=== PATIENT | female | born 1950 | race Caucasian/White ===

== ENCOUNTER → 2016-03-09 | Outpatient (REF) | payer MEDICARE ==
[~2016-03-09] MED LIST: /PANT40TA; ACET65TA; BACTRIMDS PO; CAHNTIXC PO; CHAN0.5P PO; DIFLUC100 PO; HCTZ25 PO; HYDR25TA6; IMITREX100 PO; MELOPOW; MOBIC7.5 PO; PROTONIX40 PO; RANITIDINE PO; TRAM50TA2; TYLENOL #3; WELLBUT300 PO; ZANT150T
[2016-03-09 15:59] LABS: ALBUMIN 3.7 GM/DL (3.2-5.2); ALBUMIN/GLOBULIN RATIO 1.19 (1.00-1.93); BILIRUBIN,TOTAL 0.4 MG/DL (0.2-1.0); CALCIUM LEVEL 8.5 MG/DL (8.8-10.2); CREATININE FOR GFR 1.22 MG/DL (0.55-1.02); GLOMERULAR FILTRATION RATE 46.9 (>45); TOTAL PROTEIN 6.8 GM/DL (6.4-8.2)
[2016-03-09 16:01] LABS: POTASSIUM SERUM 5.2 MEQ/L (3.5-5.1)
== END ==
LOC: M SFHCLACO 07:55
PROVIDERS: ATTEND Physician Assistant
DX: I10 Essential (primary) hypertension (principal); E55.9 Vitamin D deficiency, unspecified; Z68.43 Body mass index [BMI] 50.0-59.9, adult

== ENCOUNTER → 2016-08-31 | Outpatient (REF) | payer MEDICARE ==
[2016-08-31 15:54] LABS: ALBUMIN 4.1 GM/DL (3.2-5.2); ALBUMIN/GLOBULIN RATIO 1.24 (1.00-1.93); BILIRUBIN,TOTAL 0.5 MG/DL (0.2-1.0); CALCIUM LEVEL 9.2 MG/DL (8.8-10.2); CREATININE FOR GFR 1.46 MG/DL (0.55-1.02); TOTAL PROTEIN 7.4 GM/DL (6.4-8.2)
== END ==
LOC: M SFHCLACO 08:38
PROVIDERS: ATTEND Physician Assistant
DX: I10 Essential (primary) hypertension (principal); E55.9 Vitamin D deficiency, unspecified; Z68.43 Body mass index [BMI] 50.0-59.9, adult
CPT/HCPCS: 36415; 80053; 82306; G0463